=== PATIENT | male | born 1940 | race Caucasian/White ===

== ENCOUNTER 2020-11-06 09:27 | Inpatient (IN) ==
[2020-11-06] MEDS ORDERED: Ipratropium/Albuterol Neb 3 ML IH PRN (16:47)
[2020-11-06] MEDS ORDERED: Nitroglycerin 0.4 MG TAB.SUBL SL PRN (16:51)
[2020-11-06] MEDS: Melatonin 3 MG TABLET PO SCH (21:15)
[2020-11-06] MEDS ORDERED: *HR* OxyCODONE/APAP 5/325 TABLET PO PRN (21:48)
[2020-11-06] MEDS: Budesonide/Formoterol 160/4.5 1 PUFF INH IH SCH (21:54)
[2020-11-07] MEDS: Budesonide/Formoterol 160/4.5 1 PUFF INH IH SCH (06:32)
[2020-11-07] MEDS: Cyanocobalamin (B-12) 1,000 MCG TABLET PO SCH (08:16)
[2020-11-07] MEDS: calcitrioL 0.25 MCG CAPSULE PO SCH (08:16)
[2020-11-07] MEDS: Aspirin Enteric Coated 81 MG Tablet PO SCH (08:16)
[2020-11-07] MEDS: Isosorbide MONOnitrate (24 HR) 30 MG TAB.ER.24H PO SCH (08:16)
[2020-11-07] MEDS ORDERED: Naltrexone HCl 50 MG TABLET PO SCH (09:00)
[2020-11-07 09:05] LABS: Basophils # 0.1 K/mcL (0.0-0.2); Basophils % 0.9 %; Eosinophils # 0.3 K/mcL (0.0-0.6); Eosinophils % 3.9 %; Hematocrit 30.1 % (37.5-50.1); Hemoglobin 9.6 g/dL (12.9-16.9); Immature Granulocytes % 0.4 % (0-4); Lymphocytes % 24.3 %; Mean Corpuscular HGB Conc 31.9 g/dL (31.6-35.5); Mean Corpuscular Hemoglobin 31.9 pg (28.0-33.3); Mean Platelet Volume 10.6 fL (9.4-12.4); Monocytes # 0.7 K/mcL (0.0-1.3); Monocytes % 7.9 %; Neutrophils # 5.1 K/mcL (1.6-8.9); Platelet Count 176 K/mcL (140-400); Red Blood Count 3.01 M/mcL (4.19-5.50); Red Cell Distribution Width 12.1 % (11.5-14.5); Segmented Neutrophils % 62.6 %; White Blood Count 8.2 K/mcL (4.3-11.1)
[2020-11-07 09:18] LABS: Albumin 3.4 g/dL (3.5-5.7); Albumin/Globulin Ratio 1.4 (1.1-2.2); Bilirubin,Total 0.4 mg/dL (0.3-1.0); Calcium 8.1 mg/dL (8.6-10.3); Globulin 2.4 g/dL (2.4-3.5); Magnesium 1.7 mg/dL (1.6-2.6); Potassium 4.1 mEq/L (3.5-5.1); Total Protein 5.8 g/dL (6.4-8.9)
[2020-11-07] MEDS ORDERED: 0.9 % Sodium Chloride 1,000 ML IVC SCH (15:00)
[2020-11-07] MEDS: Melatonin 3 MG TABLET PO SCH (21:03)
[2020-11-08] MEDS: Budesonide/Formoterol 160/4.5 1 PUFF INH IH SCH ×3 (00:26→20:53)
[2020-11-08] MEDS: *HR* Enoxaparin 30 MG/0.3 ML SYRINGE SQ SCH (04:13)
[2020-11-08 05:05] LABS: Hematocrit 27.9 % (37.5-50.1); Hemoglobin 9.1 g/dL (12.9-16.9)
[2020-11-08 05:19] LABS: Calcium 8.2 mg/dL (8.6-10.3); Potassium 3.9 mEq/L (3.5-5.1)
[2020-11-08] MEDS: Cyanocobalamin (B-12) 1,000 MCG TABLET PO SCH (08:19)
[2020-11-08] MEDS: calcitrioL 0.25 MCG CAPSULE PO SCH (08:20)
[2020-11-08] MEDS: Isosorbide MONOnitrate (24 HR) 30 MG TAB.ER.24H PO SCH (08:20)
[2020-11-08] MEDS: Aspirin Enteric Coated 81 MG Tablet PO SCH (08:20)
[2020-11-08] MEDS: Naltrexone HCl 50 MG TABLET PO SCH (08:26)
[2020-11-08] MEDS: Melatonin 3 MG TABLET PO SCH (21:19)
[2020-11-09] MEDS: *HR* Enoxaparin 30 MG/0.3 ML SYRINGE SQ SCH (04:41)
[2020-11-09] MEDS: calcitrioL 0.25 MCG CAPSULE PO SCH (09:15)
[2020-11-09] MEDS: Aspirin Enteric Coated 81 MG Tablet PO SCH (09:15)
[2020-11-09] MEDS: Cyanocobalamin (B-12) 1,000 MCG TABLET PO SCH (09:15)
[2020-11-09] MEDS: Isosorbide MONOnitrate (24 HR) 30 MG TAB.ER.24H PO SCH (09:15)
[2020-11-09] MEDS: Naltrexone HCl 50 MG TABLET PO SCH (09:16)
[2020-11-09] MEDS: Budesonide/Formoterol 160/4.5 1 PUFF INH IH SCH ×2 (09:44→21:06)
[2020-11-09] MEDS: Melatonin 3 MG TABLET PO SCH (20:27)
[2020-11-10] MEDS: *HR* Enoxaparin 30 MG/0.3 ML SYRINGE SQ SCH (04:36)
[2020-11-10] MEDS: Isosorbide MONOnitrate (24 HR) 30 MG TAB.ER.24H PO SCH (08:12)
[2020-11-10] MEDS: Cyanocobalamin (B-12) 1,000 MCG TABLET PO SCH (08:13)
[2020-11-10] MEDS: Aspirin Enteric Coated 81 MG Tablet PO SCH (08:13)
[2020-11-10] MEDS: calcitrioL 0.25 MCG CAPSULE PO SCH (08:13)
[2020-11-10] MEDS: Naltrexone HCl 50 MG TABLET PO SCH (08:14)
[2020-11-10] MEDS: Budesonide/Formoterol 160/4.5 1 PUFF INH IH SCH ×2 (10:30→21:05)
[2020-11-10] MEDS: amLODIPine 5 MG TABLET PO SCH (21:32)
[2020-11-10] MEDS: Melatonin 3 MG TABLET PO SCH (21:32)
[2020-11-11] MEDS: *HR* Enoxaparin 30 MG/0.3 ML SYRINGE SQ SCH (04:48)
[2020-11-11 06:16] LABS: Calcium 8.5 mg/dL (8.6-10.3); Potassium 4.3 mEq/L (3.5-5.1)
[2020-11-11] MEDS: Cyanocobalamin (B-12) 1,000 MCG TABLET PO SCH (08:51)
[2020-11-11] MEDS: amLODIPine 5 MG TABLET PO SCH (08:51)
[2020-11-11] MEDS: Aspirin Enteric Coated 81 MG Tablet PO SCH (08:51)
[2020-11-11] MEDS: calcitrioL 0.25 MCG CAPSULE PO SCH (08:51)
[2020-11-11] MEDS: Isosorbide MONOnitrate (24 HR) 30 MG TAB.ER.24H PO SCH (08:51)
[2020-11-11] MEDS: Budesonide/Formoterol 160/4.5 1 PUFF INH IH SCH ×2 (09:12→22:24)
[2020-11-11] MEDS: Naltrexone HCl 50 MG TABLET PO SCH (10:27)
[2020-11-11] MEDS: 0.9 % Sodium Chloride 1,000 ML IVC SCH (13:32)
[2020-11-11] MEDS: Melatonin 3 MG TABLET PO SCH (22:32)
[2020-11-12] MEDS: 0.9 % Sodium Chloride 1,000 ML IVC SCH (02:35)
[2020-11-12] MEDS: *HR* Enoxaparin 30 MG/0.3 ML SYRINGE SQ SCH (05:01)
[2020-11-12 05:50] LABS: Calcium 8.2 mg/dL (8.6-10.3); Potassium 4.5 mEq/L (3.5-5.1)
[2020-11-12] MEDS: calcitrioL 0.25 MCG CAPSULE PO SCH (07:55)
[2020-11-12] MEDS: amLODIPine 5 MG TABLET PO SCH (07:55)
[2020-11-12] MEDS: Isosorbide MONOnitrate (24 HR) 30 MG TAB.ER.24H PO SCH (07:56)
[2020-11-12] MEDS: Cyanocobalamin (B-12) 1,000 MCG TABLET PO SCH (07:56)
[2020-11-12] MEDS: Naltrexone HCl 50 MG TABLET PO SCH (07:56)
[2020-11-12] MEDS: Aspirin Enteric Coated 81 MG Tablet PO SCH (07:56)
[2020-11-12] MEDS: Budesonide/Formoterol 160/4.5 1 PUFF INH IH SCH ×2 (09:18→22:14)
[2020-11-12] MEDS: Melatonin 3 MG TABLET PO SCH (20:04)
[2020-11-13] MEDS: *HR* Enoxaparin 30 MG/0.3 ML SYRINGE SQ SCH (04:00)
[2020-11-13] MEDS: Acetaminophen 325 MG TABLET PO PRN (08:37)
[2020-11-13] MEDS: Isosorbide MONOnitrate (24 HR) 30 MG TAB.ER.24H PO SCH (08:37)
[2020-11-13] MEDS: calcitrioL 0.25 MCG CAPSULE PO SCH (08:37)
[2020-11-13] MEDS: amLODIPine 5 MG TABLET PO SCH (08:38)
[2020-11-13] MEDS: Aspirin Enteric Coated 81 MG Tablet PO SCH (08:38)
[2020-11-13] MEDS: Cyanocobalamin (B-12) 1,000 MCG TABLET PO SCH (08:38)
[2020-11-13] MEDS: Naltrexone HCl 50 MG TABLET PO SCH (08:39)
[2020-11-13] MEDS: Budesonide/Formoterol 160/4.5 1 PUFF INH IH SCH ×2 (09:39→21:09)
[2020-11-13] MEDS: Melatonin 3 MG TABLET PO SCH (20:36)
[2020-11-14] MEDS: *HR* Enoxaparin 30 MG/0.3 ML SYRINGE SQ SCH (05:14)
[2020-11-14] MEDS: Budesonide/Formoterol 160/4.5 1 PUFF INH IH SCH ×2 (07:30→21:35)
[2020-11-14] MEDS: calcitrioL 0.25 MCG CAPSULE PO SCH (08:26)
[2020-11-14] MEDS: amLODIPine 5 MG TABLET PO SCH (08:26)
[2020-11-14] MEDS: Cyanocobalamin (B-12) 1,000 MCG TABLET PO SCH (08:27)
[2020-11-14] MEDS: Isosorbide MONOnitrate (24 HR) 30 MG TAB.ER.24H PO SCH (08:27)
[2020-11-14] MEDS: Aspirin Enteric Coated 81 MG Tablet PO SCH (08:27)
[2020-11-14] MEDS: Naltrexone HCl 50 MG TABLET PO SCH (08:29)
[2020-11-14] MEDS: Acetaminophen 325 MG TABLET PO PRN (13:02)
[2020-11-14] MEDS: Melatonin 3 MG TABLET PO SCH (21:16)
[2020-11-15 04:54] LABS: Basophils # 0.1 K/mcL (0.0-0.2); Basophils % 0.7 %; Eosinophils # 0.3 K/mcL (0.0-0.6); Eosinophils % 3.7 %; Hematocrit 27.6 % (37.5-50.1); Hemoglobin 8.8 g/dL (12.9-16.9); Immature Granulocytes % 0.4 % (0-4); Lymphocytes % 26.8 %; Mean Corpuscular HGB Conc 31.9 g/dL (31.6-35.5); Mean Corpuscular Hemoglobin 31.9 pg (28.0-33.3); Mean Platelet Volume 10.8 fL (9.4-12.4); Monocytes # 0.8 K/mcL (0.0-1.3); Monocytes % 10.1 %; Neutrophils # 4.4 K/mcL (1.6-8.9); Platelet Count 167 K/mcL (140-400); Red Blood Count 2.76 M/mcL (4.19-5.50); Red Cell Distribution Width 12.3 % (11.5-14.5); Segmented Neutrophils % 58.3 %; White Blood Count 7.5 K/mcL (4.3-11.1)
[2020-11-15 05:10] LABS: Calcium 8.2 mg/dL (8.6-10.3); Potassium 4.4 mEq/L (3.5-5.1)
[2020-11-15] MEDS: *HR* Enoxaparin 30 MG/0.3 ML SYRINGE SQ SCH (05:55)
[2020-11-15] MEDS: Cyanocobalamin (B-12) 1,000 MCG TABLET PO SCH (08:40)
[2020-11-15] MEDS: Naltrexone HCl 50 MG TABLET PO SCH (08:40)
[2020-11-15] MEDS: calcitrioL 0.25 MCG CAPSULE PO SCH (08:40)
[2020-11-15] MEDS: amLODIPine 5 MG TABLET PO SCH (08:41)
[2020-11-15] MEDS: Isosorbide MONOnitrate (24 HR) 30 MG TAB.ER.24H PO SCH (08:41)
[2020-11-15] MEDS: Aspirin Enteric Coated 81 MG Tablet PO SCH (08:41)
[2020-11-15] MEDS: Budesonide/Formoterol 160/4.5 1 PUFF INH IH SCH ×2 (10:45→19:03)
[2020-11-15] MEDS: Acetaminophen 325 MG TABLET PO PRN (15:38)
[2020-11-15] MEDS: 0.9 % Sodium Chloride 1,000 ML IVC SCH (22:07)
[2020-11-16] MEDS: Melatonin 3 MG TABLET PO SCH ×2 (00:04→21:59)
[2020-11-16] MEDS: *HR* Enoxaparin 30 MG/0.3 ML SYRINGE SQ SCH (06:28)
[2020-11-16 06:40] LABS: Potassium 4.2 mEq/L (3.5-5.1)
[2020-11-16 06:41] LABS: Calcium 8.4 mg/dL (8.6-10.3)
[2020-11-16] MEDS: 0.9 % Sodium Chloride 1,000 ML IVC SCH (07:40)
[2020-11-16] MEDS: Aspirin Enteric Coated 81 MG Tablet PO SCH (08:46)
[2020-11-16] MEDS: Cyanocobalamin (B-12) 1,000 MCG TABLET PO SCH (08:46)
[2020-11-16] MEDS: Acetaminophen 325 MG TABLET PO PRN (08:46)
[2020-11-16] MEDS: calcitrioL 0.25 MCG CAPSULE PO SCH (08:46)
[2020-11-16] MEDS: Isosorbide MONOnitrate (24 HR) 30 MG TAB.ER.24H PO SCH (08:47)
[2020-11-16] MEDS: Naltrexone HCl 50 MG TABLET PO SCH (08:48)
[2020-11-16] MEDS: amLODIPine 5 MG TABLET PO SCH (08:53)
[2020-11-16] MEDS: Budesonide/Formoterol 160/4.5 1 PUFF INH IH SCH ×2 (10:02→22:01)
[2020-11-16] MEDS ORDERED: 0.9 % Sodium Chloride 1,000 ML IVC SCH (20:00)
[2020-11-17] MEDS: *HR* Enoxaparin 30 MG/0.3 ML SYRINGE SQ SCH (05:51)
[2020-11-17 05:58] LABS: Hematocrit 29.1 % (37.5-50.1); Hemoglobin 9.4 g/dL (12.9-16.9); Mean Corpuscular HGB Conc 32.3 g/dL (31.6-35.5); Mean Corpuscular Hemoglobin 32.1 pg (28.0-33.3); Mean Corpuscular Volume 99.3 fL (83.0-100.0); Mean Platelet Volume 10.5 fL (9.4-12.4); Platelet Count 183 K/mcL (140-400); Red Blood Count 2.93 M/mcL (4.19-5.50); Red Cell Distribution Width 12.2 % (11.5-14.5); White Blood Count 6.9 K/mcL (4.3-11.1)
[2020-11-17 06:18] LABS: Calcium 8.3 mg/dL (8.6-10.3); Potassium 4.1 mEq/L (3.5-5.1)
[2020-11-17] MEDS: calcitrioL 0.25 MCG CAPSULE PO SCH (09:25)
[2020-11-17] MEDS: Naltrexone HCl 50 MG TABLET PO SCH (09:26)
[2020-11-17] MEDS: Cyanocobalamin (B-12) 1,000 MCG TABLET PO SCH (09:26)
[2020-11-17] MEDS: Aspirin Enteric Coated 81 MG Tablet PO SCH (09:26)
[2020-11-17] MEDS: Isosorbide MONOnitrate (24 HR) 30 MG TAB.ER.24H PO SCH (09:26)
[2020-11-17] MEDS: amLODIPine 5 MG TABLET PO SCH (09:26)
[2020-11-17] MEDS: Budesonide/Formoterol 160/4.5 1 PUFF INH IH SCH ×2 (10:19→20:02)
[2020-11-17] MEDS: Melatonin 3 MG TABLET PO SCH (20:20)
[2020-11-18] MEDS: *HR* Enoxaparin 30 MG/0.3 ML SYRINGE SQ SCH (04:39)
[2020-11-18] MEDS: Aspirin Enteric Coated 81 MG Tablet PO SCH (08:59)
[2020-11-18] MEDS: calcitrioL 0.25 MCG CAPSULE PO SCH (09:00)
[2020-11-18] MEDS: Cyanocobalamin (B-12) 1,000 MCG TABLET PO SCH (09:00)
[2020-11-18] MEDS: Isosorbide MONOnitrate (24 HR) 30 MG TAB.ER.24H PO SCH (09:00)
[2020-11-18] MEDS: amLODIPine 5 MG TABLET PO SCH (09:01)
[2020-11-18] MEDS: Naltrexone HCl 50 MG TABLET PO SCH (09:01)
[2020-11-18] MEDS: Budesonide/Formoterol 160/4.5 1 PUFF INH IH SCH ×2 (10:08→20:02)
[2020-11-18] MEDS: Melatonin 3 MG TABLET PO SCH ×2 (19:57→22:03)
[2020-11-19] MEDS: *HR* Enoxaparin 30 MG/0.3 ML SYRINGE SQ SCH (05:45)
[2020-11-19] MEDS: Cyanocobalamin (B-12) 1,000 MCG TABLET PO SCH (08:39)
[2020-11-19] MEDS: Aspirin Enteric Coated 81 MG Tablet PO SCH (08:40)
[2020-11-19] MEDS: calcitrioL 0.25 MCG CAPSULE PO SCH (08:40)
[2020-11-19] MEDS: amLODIPine 5 MG TABLET PO SCH (08:40)
[2020-11-19] MEDS: Isosorbide MONOnitrate (24 HR) 30 MG TAB.ER.24H PO SCH (08:40)
[2020-11-19] MEDS: Naltrexone HCl 50 MG TABLET PO SCH (08:41)
[2020-11-19] MEDS: Budesonide/Formoterol 160/4.5 1 PUFF INH IH SCH ×2 (10:18→20:19)
[2020-11-19] MEDS: Acetaminophen 325 MG TABLET PO PRN (15:06)
[2020-11-19] MEDS: Melatonin 3 MG TABLET PO SCH (22:06)
[2020-11-20] MEDS: *HR* Enoxaparin 30 MG/0.3 ML SYRINGE SQ SCH (05:00)
[2020-11-20] MEDS: Cyanocobalamin (B-12) 1,000 MCG TABLET PO SCH (09:39)
[2020-11-20] MEDS: calcitrioL 0.25 MCG CAPSULE PO SCH (09:39)
[2020-11-20] MEDS: amLODIPine 5 MG TABLET PO SCH (09:39)
[2020-11-20] MEDS: Aspirin Enteric Coated 81 MG Tablet PO SCH (09:40)
[2020-11-20] MEDS: Isosorbide MONOnitrate (24 HR) 30 MG TAB.ER.24H PO SCH (09:40)
[2020-11-20] MEDS: Budesonide/Formoterol 160/4.5 1 PUFF INH IH SCH ×2 (10:58→21:42)
[2020-11-20] MEDS: Naltrexone HCl 50 MG TABLET PO SCH (12:09)
[2020-11-20] MEDS: Melatonin 3 MG TABLET PO SCH (22:03)
[2020-11-21] MEDS: *HR* Enoxaparin 30 MG/0.3 ML SYRINGE SQ SCH (04:57)
[2020-11-21 06:57] VITALS: BP 153/82
[2020-11-21] MEDS: Budesonide/Formoterol 160/4.5 1 PUFF INH IH SCH (07:07)
[2020-11-21] MEDS: Cyanocobalamin (B-12) 1,000 MCG TABLET PO SCH (07:45)
[2020-11-21] MEDS: Isosorbide MONOnitrate (24 HR) 30 MG TAB.ER.24H PO SCH (07:45)
[2020-11-21] MEDS: calcitrioL 0.25 MCG CAPSULE PO SCH (07:45)
[2020-11-21] MEDS: amLODIPine 5 MG TABLET PO SCH (07:45)
[2020-11-21] MEDS: Aspirin Enteric Coated 81 MG Tablet PO SCH (07:45)
[2020-11-21] MEDS: Naltrexone HCl 50 MG TABLET PO SCH (07:53)
== END 2020-11-21 13:30 | DRG 945 ==
LOC: INPGRE 15:04
PROVIDERS: ADMIT Family Medicine; ATTEND Family Medicine